=== PATIENT | female | born 1960 | race American Indian/Alaskan Native ===

== ENCOUNTER 2022-05-17 11:39 | Emergency (ER) | payer SELFPAY ==
[2022-05-17 12:39] VITALS: BP 127/88
[2022-05-17 13:36] LABS: Basophils % (Auto) 0.7 % (0.0-1.8); Eosinophils # (Auto) 0.2 K/mm3 (0.0-0.4); Hematocrit 30.7 % (30.3-42.9); Lymphocytes # (Auto) 1.5 K/mm3 (1.2-5.4); Lymphocytes % (Auto) 27.3 % (13.4-35.0); Mean Corpuscular HGB Conc 33 % (30-34); Monocytes # (Auto) 0.3 K/mm3 (0.0-0.8); Monocytes % (Auto) 5.1 % (0.0-7.3); Platelet Count 317 K/mm3 (140-440); Red Blood Count 4.89 M/mm3 (3.65-5.03); Red Cell Distribution Width 16.9 % (13.2-15.2)
[2022-05-17 13:50] LABS: Mean Corpuscular Volume 63 fl (79-97)
[2022-05-17 13:55] LABS: BUN/Creatinine Ratio 11; Blood Urea Nitrogen 9 mg/dL (7-17); Calcium 9.7 mg/dL (8.4-10.2); Hemolysis Index 2
--- NOTE | 2022-05-18 01:24 | Cat Scan Report ---
CT ABDOMEN AND PELVIS WITH CONTRAST INDICATION / CLINICAL INFORMATION: Hematochezia, lower abdominal pain. TECHNIQUE: Axial CT images were obtained through the abdomen and pelvis after IV contrast. All CT sc ans at this location are performed using CT dose reduction for ALARA by means of automated exposure c ontrol. COMPARISON: None available. FINDINGS: LOWER CHEST: No significant abnormality. LIVER: No significant abnormality. GALLBLADDER/BILIARY: No significant abnormality or evidence for biliary obstruction. PANCREAS: No significant abnormality. SPLEEN: No significant abnormality. ADRENALS: No significant abnormality. KIDNEYS/URETERS: No urolithiasis, hydronephrosis, suspicious mass or other acute process. GI: Mild fat stranding adjacent to the sigmoid colon with mild wall thickening through a segment of e xtensive diverticulosis. Findings most likely represent mild acute diverticulitis. No other bowel obs truction or inflammation. APPENDIX: No significant abnormality. PERITONEUM: No pneumoperitoneum, free peritoneal fluid or loculated fluid collection. LYMPH NODES: No significant adenopathy. AORTA / ARTERIES: Mild atherosclerotic calcification without acute abnormality. URINARY BLADDER: No significant abnormality. REPRODUCTIVE ORGANS: No significant abnormality. SKELETAL SYSTEM: No acute or destructive osseous process. ADDITIONAL FINDINGS: None. IMPRESSION: 1. Mild acute uncomplicated sigmoid diverticulitis. Signer Name: Kal Wilson MD Signed: 05/18/2022 1:20 AM Workstation Name: [email or web address]
--- NOTE | 2022-05-18 01:35 | Emergency Department Report ---
ED GI Bleed HPI - General Chief complaint: GI Bleed Stated complaint: ABNORMAL BLEEDING Time Seen by Provider: 05/17/22 23:47 Source: patient Mode of arrival: Ambulatory Limitations: No Limitations - History of Present Illness Initial comments: Patient is a 62-year-old female presenting to ED with complaint of hematochezia while having a bowel movement this morning. She is not on blood thinners. She denies any abdominal pain. Reports family history of colon cancer. Severity scale (0 -10): 7 - Related Data Previous Rx's Medication Instructions Recorded Last Taken Type Ciprofloxacin/Ciprofloxa HCl 500 mg PO BID #14 05/18/22 Unknown Rx [Ciprofloxacin ER 500 mg Tablet] metroNIDAZOLE [Flagyl] 500 mg PO Q8HR #21 tablet 05/18/22 Unknown Rx Allergies Allergy/AdvReac Type Severity Reaction Status Date / Time No Known Allergies Allergy Unverified 05/17/22 12:40 ED Review of Systems ROS: Stated complaint: ABNORMAL BLEEDING Other details as noted in HPI Constitutional: denies: chills, fever Respiratory: denies: cough, shortness of breath, wheezing Cardiovascular: denies: chest pain, palpitations Gastrointestinal: hematochezia. denies: abdominal pain Musculoskeletal: denies: back pain, joint swelling, arthralgia Skin: denies: rash, lesions Neurological: denies: headache, weakness, paresthesias Psychiatric: denies: anxiety, depression ED Past Medical Hx - Past Medical History Previous Medical History?: Yes Hx Hypertension: Yes - Surgical History Past Surgical History?: Yes Additional Surgical History: Tubaligation, Abdomiinal hernia repair - Medications Home Medications: Home Medications Medication Instructions Recorded Confirmed Last Taken Type Ciprofloxacin/Ciprofloxa HCl 500 mg PO BID #14 05/18/22 Unknown Rx [Ciprofloxacin ER 500 mg Tablet] metroNIDAZOLE [Flagyl] 500 mg PO Q8HR #21 tablet 05/18/22 Unknown Rx ED Physical Exam - General Limitations: No Limitations General appearance: alert, in no apparent distress - Head Head exam: Present: atraumatic, normocephalic - Respiratory Respiratory exam: Present: normal lung sounds bilaterally. Absent: respiratory distress - Cardiovascular Cardiovascular Exam: Present: regular rate, normal rhythm, normal heart sounds - GI/Abdominal GI/Abdominal exam: Present: soft. Absent: distended, tenderness - Rectal Rectal exam: Present: deferred - Neurological Exam Neurological exam: Present: alert, oriented X3 - Psychiatric Psychiatric exam: Present: normal affect, normal mood - Skin Skin exam: Present: warm, dry, intact, normal color ED Course Vital Signs 05/17/22 12:38 Temperature 98.2 F Pulse Rate 82 Respiratory 20 Rate Blood Pressure 127/88 [Right] O2 Sat by Pulse 98 Oximetry ED Medical Decision Making - Lab Data Result diagrams: 05/17/22 13:02 05/17/22 13:02 - Medical Decision Making H&H 10 and 30. Chemistry unremarkable. CT abdomen pelvis shows mild acute uncomplicated diverticulitis. Will DC home on Cipro and Flagyl. Critical care attestation.: If time is entered above; I have spent that time in minutes in the direct care of this critically ill patient, excluding procedure time. ED Disposition Clinical Impression: Acute diverticulitis Disposition: 01 HOME / SELF CARE / HOMELESS Is pt being admited?: No Condition: Stable Instructions: Diverticulitis, [id number] Additional Instructions: Please follow-up with your PCP within 1 to 2 weeks. You may return if your symptoms worsen or if you develop additional symptoms such as fever, chills or abdominal pain. Time of Disposition: 01:37
== END 2022-05-18 02:55 | disposition home or self-care (01) ==
LOC: ED 11:39
DX: K57.92 Diverticulitis of intestine, part unspecified, without perforation or abscess without bleeding (principal); I10 Essential (primary) hypertension
CPT/HCPCS: 36415; 74177; 80048; 85025; 99284; Q9967